=== PATIENT | female | born 1985 | race Caucasian/White ===

== ENCOUNTER 2023-02-19 09:19 | Outpatient (CLI) | payer BC | END 2023-02-19 09:20 | disposition home or self-care (01) | LOC: BICMAMMO 09:19 | PROVIDERS: ATTEND Family Medicine | DX: Z12.31 Encounter for screening mammogram for malignant neoplasm of breast (principal); N63.12 Unspecified lump in the right breast, upper inner quadrant | CPT/HCPCS: 77063; 77067 ==

== ENCOUNTER 2023-02-26 14:35 | Outpatient (CLI) | payer BC | END 2023-02-26 14:36 | disposition home or self-care (01) | LOC: BICMAMMO 14:35 | PROVIDERS: ATTEND Family Medicine | DX: N63.10 Unspecified lump in the right breast, unspecified quadrant (principal); N60.01 Solitary cyst of right breast | CPT/HCPCS: G0279 ==